=== PATIENT | male | born 1970 | race Two or more races ===

== ENCOUNTER 2020-01-06 15:30 | Outpatient (CLI) | payer BC ==
[2020-01-10] MEDS ORDERED: MIDAZOLAM 1 MG/ML, 2ML ONE (06:39)
[2020-01-10] MEDS ORDERED: FENTANYL PF 250 MCG/5ML ONE ×2 (06:40→10:32)
[2020-01-10] MEDS ORDERED: PHENYLEPHRINE 10 MG/ML ONE (06:42)
[2020-01-10] MEDS ORDERED: NEOSTIGMINE 1 MG/ML, 10ML ONE (06:45)
[2020-01-10] MEDS ORDERED: ROCURONIUM 10MG/ML,5ML ONE (06:45)
[2020-01-10] MEDS ORDERED: PROPOFOL 10 MG/ML, 20ML ONE (06:45)
[2020-01-10] MEDS ORDERED: GLYCOPYRROLATE 0.2MG/1ML, 5ML ONE (06:45)
[2020-01-10] MEDS ORDERED: CEFAZOLIN 1,000 MG ONE (06:45)
[2020-01-10] MEDS ORDERED: DEXAMETHASONE 4 MG/ML, 1ML ONE (06:45)
[2020-01-10] MEDS ORDERED: ONDANSETRON 2MG/ML, 2ML ONE (06:45)
[2020-01-10] MEDS ORDERED: SUGAMMADEX 200 MG/2 ML IVPush ONE (11:24)
== END 2020-01-06 23:59 | disposition home or self-care (01) ==
LOC: RAD 15:30
PROVIDERS: ATTEND Orthopaedic Surgery Orthopaedic Surgery of the Spine
DX: Z02.9 Encounter for administrative examinations, unspecified (principal)

== ENCOUNTER → 2020-01-06 | Outpatient (CLI) | payer BC ==
[~2020-01-06] MED LIST: ALLO300T PO; ARMO250T2 PO; ASPI-496 PO; INDO50CA15 PO; LISI-167 PO; TRAM50TA2 PO
[2020-01-06 15:01] LABS: BASOPHILS # (AUTO) 0.02 x10^3/uL (0-0.1); BASOPHILS % (AUTO) 0 % (0-1); EOSINOPHILS # (AUTO) 0.27 x10^3/uL (0-0.4); EOSINOPHILS % (AUTO) 4 % (1-7); LYMPHOCYTES # (AUTO) 1.27 x10^3/uL (1-3.4); LYMPHOCYTES % (AUTO) 18 % (22-44); MD NO; MEAN CORPUSCULAR HEMOGLOBIN 32.3 pg (27.5-34.5); MEAN CORPUSCULAR HGB CONC 34.4 g/dL (33.2-36.2); MEAN CORPUSCULAR VOLUME 94.1 fL (81-97); MEAN PLATELET VOLUME 6.9 fL (7.4-10.4); MONOCYTES % (AUTO) 9 % (2-9); NEUTROPHILS # (AUTO) 4.91 x10^3/uL (1.8-6.8); NEUTROPHILS % (AUTO) 69 % (42-75); PLATELET COUNT 186 x10^3/uL (130-400); RED CELL DISTRIBUTION WIDTH 13.4 % (9.4-14.8)
[2020-01-06 15:08] LABS: MICROSCOPIC NOT IND
[2020-01-06 15:19] LABS: ALANINE AMINOTRANSFERASE 22 U/L (12-78); ALBUMIN 4.1 g/dL (3.4-5.0); ANION GAP 6 mmol/L (5-15); CALCIUM 8.8 mg/dL (8.5-10.1); CHLORIDE 107 mmol/L (98-107); CREATININE 1.19 mg/dL (0.7-1.3)
[2020-01-06 15:21] LABS: ALKALINE PHOSPHATASE 107 U/L (45-117); BILIRUBIN,TOTAL 0.8 mg/dL (0.2-1.0); TOTAL PROTEIN 7.6 g/dL (6.4-8.2)
[2020-01-06 15:33] LABS: INTERNATIONAL NORMALIZED RATIO 0.98 (0.93-1.1); PROTHROMBIN TIME 10.4 Seconds (9.6-11.5)
== END | disposition home or self-care (01) ==
LOC: STAR 14:03
PROVIDERS: ATTEND Orthopaedic Surgery Orthopaedic Surgery of the Spine
DX: Z01.818 Encounter for other preprocedural examination (principal); M47.816 Spondylosis without myelopathy or radiculopathy, lumbar region; M43.26 Fusion of spine, lumbar region
CPT/HCPCS: 36415; 71046; 80053; 81003; 85025; 85610; 85730; 93005

== ENCOUNTER 2020-01-10 05:23 | Inpatient (IN) | payer BC ==
[~2020-01-10] VITALS: Ht 165.1 cm; Wt 100.5 kg
[2020-01-10] MEDS ORDERED: LACTATED RINGERS 1,000 ML IV SCH (05:47)
[2020-01-10 05:53] VITALS: BP 155/82
[2020-01-10] MEDS ORDERED: CHLORHEXIDINE 15 ML UDC MM ONE (06:00)
[2020-01-10] MEDS ORDERED: LIDOCAINE-MPF 1%, 2ML INFIL ONE (06:00)
[2020-01-10] MEDS ORDERED: BUPIVACAINE/PF-EPI 0.5% 1:200K ONE (06:58)
[2020-01-10] MEDS ORDERED: VANCOMYCIN 1,000 MG ONE (06:58)
[2020-01-10] MEDS ORDERED: LIDOCAINE/PF 0.5% ,50ML ONE (06:58)
[2020-01-10] MEDS ORDERED: EPINEPHRINE 1 MG/ML, 1ML ONE (06:59)
[2020-01-10] MEDS ORDERED: GABAPENTIN 300 MG CAPSULE PO ONE (07:00)
[2020-01-10] MEDS ORDERED: ACETAMINOPHEN 500 MG TABLET PO ONE (07:00)
[2020-01-10] MEDS ORDERED: LABETALOL 5MG/ML, 20ML IV PRN (07:30)
[2020-01-10] MEDS ORDERED: morphine SULFATE 10 MG/ML, 1ML IVPush PRN (07:30)
[2020-01-10] MEDS ORDERED: MEPERIDINE/PF 25MG/0.5ML IVPush PRN (07:30)
[2020-01-10] MEDS ORDERED: hydrALAzine 20 MG/ML, 1ML IV PRN (07:30)
[2020-01-10] MEDS ORDERED: ONDANSETRON 2MG/ML, 2ML IVPush PRN (07:30)
[2020-01-10] MEDS ORDERED: HYDROmorphone 1 MG/ML, 1ML INJ IVPush PRN (07:30)
[2020-01-10] MEDS ORDERED: PHENYLEPHRINE 10 MG/ML ONE (07:44)
[2020-01-10] MEDS ORDERED: CEFAZOLIN PMX 2GM/100ML ONE (07:44)
[2020-01-10] MEDS ORDERED: GLYCOPYRROLATE 0.4 MG/2 ML, 2ML ONE (07:44)
[2020-01-10] MEDS ORDERED: FENTANYL PF 250 MCG/5ML ONE ×2 (07:44)
[2020-01-10] MEDS ORDERED: NEOSTIGMINE 1 MG/ML, 10ML ONE (07:44)
[2020-01-10] MEDS ORDERED: ROCURONIUM 10 MG/ML,10ML ONE (07:44)
[2020-01-10] MEDS ORDERED: SUGAMMADEX 200 MG/2 ML IVPush ONE (07:44)
[2020-01-10] MEDS ORDERED: MIDAZOLAM 1 MG/ML, 5ML ONE (07:44)
[2020-01-10] MEDS ORDERED: PROPOFOL 10 MG/ML, 100ML IV ONE (07:44)
[2020-01-10] MEDS ORDERED: VANCOMYCIN 1,000 MG IM ONE (08:44)
[2020-01-10] MEDS ORDERED: FENTANYL PF 100 MCG/2ML ONE (11:57)
[2020-01-10] MEDS ORDERED: OXYcodone 5 MG/5 ML ORAL.SOL UDC ONE ×2 (11:57→12:20)
[2020-01-10] MEDS: OXYcodone 5 MG/5 ML ORAL.SOL UDC PO PRN ×2 (11:59→12:20)
[2020-01-10] MEDS ORDERED: METHOCARBAMOL 1000MG/10 ML IVPB PRN (12:00)
[2020-01-10] MEDS ORDERED: METHOCARBAMOL 1,000 MG in DEXTROSE 5% 100 ML IV ONE (12:00)
[2020-01-10] MEDS: FENTANYL PF 100 MCG/2ML IV PRN ×2 (12:06→12:17)
[2020-01-10] MEDS: METHOCARBAMOL 750 MG in DEXTROSE 5% 100 ML IV SCH (12:23)
[2020-01-10 13:26] VITALS: BP 113/76
[2020-01-10] MEDS ORDERED: DIPHENHYDRAMINE 50 MG/ML, 1ML IVPush PRN (14:30)
[2020-01-10] MEDS ORDERED: MAGNESIUM HYDROXIDE 8%, 30ML UDC PO PRN (14:30)
[2020-01-10] MEDS ORDERED: ONDANSETRON 2MG/ML, 2ML IV PRN (14:30)
[2020-01-10] MEDS ORDERED: BISACODYL 10 MG SUPP PR PRN (14:30)
[2020-01-10] MEDS ORDERED: DIPHENHYDRAMINE 50 MG/ML, 1ML IM PRN (14:30)
[2020-01-10] MEDS ORDERED: PROMETHAZINE 25 MG/ML, 1ML IM PRN (14:30)
[2020-01-10] MEDS ORDERED: morphine SULFATE 10 MG/ML, 1ML IV PRN (14:30)
[2020-01-10] MEDS ORDERED: HYDROcodone/APAP 5/325 TABLET PO PRN (14:30)
[2020-01-10] MEDS ORDERED: DIPHENHYDRAMINE 25 MG CAPSULE PO PRN (15:00)
[2020-01-10] MEDS ORDERED: SODIUM CHLORIDE 0.9% 1,000ML IV PRN (15:00)
[2020-01-10] MEDS: D5%-0.9% NACL+KCL 20MEQ 1,000 ML IV SCH (15:50)
[2020-01-10] MEDS: CEFAZOLIN PMX 1GM/50ML 50 ML IVPB SCH (15:51)
[2020-01-10 18:25] VITALS: BP 104/51
[2020-01-10] MEDS: SENNA/DOCUSATE TABLET PO SCH (20:40)
[2020-01-10 23:17] VITALS: BP 112/66
[2020-01-11] MEDS: CEFAZOLIN PMX 1GM/50ML 50 ML IVPB SCH (00:10)
[2020-01-11] MEDS: D5%-0.9% NACL+KCL 20MEQ 1,000 ML IV SCH ×4 (00:11→21:37)
[2020-01-11 03:26] VITALS: BP 95/63
[2020-01-11] MEDS: METHOCARBAMOL 750 MG in DEXTROSE 5% 100 ML IV SCH ×3 (03:59→20:02)
[2020-01-11 05:32] LABS: BASOPHILS % (AUTO) 0 % (0-1); EOSINOPHILS # (AUTO) 0.02 x10^3/uL (0-0.4); EOSINOPHILS % (AUTO) 0 % (1-7); LYMPHOCYTES # (AUTO) 1.58 x10^3/uL (1-3.4); LYMPHOCYTES % (AUTO) 10 % (22-44); MD NO; MEAN CORPUSCULAR HEMOGLOBIN 31.8 pg (27.5-34.5); MEAN CORPUSCULAR HGB CONC 32.8 g/dL (33.2-36.2); MEAN CORPUSCULAR VOLUME 96.9 fL (81-97); MEAN PLATELET VOLUME 7.2 fL (7.4-10.4); MONOCYTES # (AUTO) 1.34 x10^3/uL (0.2-0.8); MONOCYTES % (AUTO) 9 % (2-9); NEUTROPHILS % (AUTO) 81 % (42-75); PLATELET COUNT 210 x10^3/uL (130-400); RED BLOOD COUNT 4.22 x10^6/uL (4.38-5.82); RED CELL DISTRIBUTION WIDTH 13.9 % (9.4-14.8)
[2020-01-11 05:40] LABS: ANION GAP 5 mmol/L (5-15); CALCIUM 8.1 mg/dL (8.5-10.1); CHLORIDE 104 mmol/L (98-107)
[2020-01-11 05:42] LABS: CREATININE 1.87 mg/dL (0.7-1.3)
[2020-01-11 06:36] VITALS: BP 101/66
[2020-01-11] MEDS: ARMODAFINIL 250 MG HOMEMEDPO SCH (09:00)
[2020-01-11] MEDS: LISINOPRIL 10 MG TABLET PO SCH (09:00)
[2020-01-11] MEDS: SENNA/DOCUSATE TABLET PO SCH ×2 (09:19→20:23)
[2020-01-11] MEDS: ALLOPURINOL 300 MG TABLET PO SCH (09:19)
[2020-01-11] MEDS: HYDROcodone/APAP 10/325 MG TABLET PO PRN ×3 (11:03→23:59)
[2020-01-11 13:31] VITALS: BP 112/63
[2020-01-11 18:32] VITALS: BP 117/71
[2020-01-11 20:35] VITALS: BP 95/65
[2020-01-12 00:21] VITALS: BP 110/67
[2020-01-12 03:31] VITALS: BP 121/75
[2020-01-12] MEDS: METHOCARBAMOL 750 MG in DEXTROSE 5% 100 ML IV SCH ×2 (03:55→12:08)
[2020-01-12] MEDS: HYDROcodone/APAP 10/325 MG TABLET PO PRN ×4 (03:55→18:35)
[2020-01-12 05:19] LABS: BASOPHILS # (AUTO) 0.11 x10^3/uL (0-0.1); BASOPHILS % (AUTO) 1 % (0-1); EOSINOPHILS % (AUTO) 2 % (1-7); LYMPHOCYTES # (AUTO) 1.07 x10^3/uL (1-3.4); LYMPHOCYTES % (AUTO) 8 % (22-44); MD NO; MEAN CORPUSCULAR HEMOGLOBIN 32.6 pg (27.5-34.5); MEAN CORPUSCULAR HGB CONC 33.5 g/dL (33.2-36.2); MEAN CORPUSCULAR VOLUME 97.1 fL (81-97); MEAN PLATELET VOLUME 6.6 fL (7.4-10.4); MONOCYTES # (AUTO) 0.91 x10^3/uL (0.2-0.8); MONOCYTES % (AUTO) 7 % (2-9); NEUTROPHILS # (AUTO) 10.95 x10^3/uL (1.8-6.8); NEUTROPHILS % (AUTO) 83 % (42-75); PLATELET COUNT 172 x10^3/uL (130-400); RED BLOOD COUNT 3.95 x10^6/uL (4.38-5.82); RED CELL DISTRIBUTION WIDTH 12.9 % (9.4-14.8)
[2020-01-12 05:26] LABS: ANION GAP 2 mmol/L (5-15); CALCIUM 8.2 mg/dL (8.5-10.1); CHLORIDE 100 mmol/L (98-107); CREATININE 1.33 mg/dL (0.7-1.3)
[2020-01-12 07:05] VITALS: BP 157/84
[2020-01-12] MEDS: SENNA/DOCUSATE TABLET PO SCH ×2 (07:39→20:33)
[2020-01-12] MEDS: LISINOPRIL 10 MG TABLET PO SCH (07:39)
[2020-01-12] MEDS: ALLOPURINOL 300 MG TABLET PO SCH (07:40)
[2020-01-12] MEDS: ARMODAFINIL 250 MG HOMEMEDPO SCH (07:40)
[2020-01-12 13:00] VITALS: BP 113/73
[2020-01-12] MEDS: D5%-0.9% NACL+KCL 20MEQ 1,000 ML IV SCH (17:00)
[2020-01-12 18:22] VITALS: BP 114/64
[2020-01-12] MEDS: METHOCARBAMOL 750 MG TABLET PO SCH (20:33)
[2020-01-12] MEDS: METOCLOPRAMIDE 5 MG/ML, 2ML IVPush PRN (21:28)
[2020-01-13 00:08] VITALS: BP 152/63
[2020-01-13] MEDS: D5%-0.9% NACL+KCL 20MEQ 1,000 ML IV SCH ×2 (03:00→11:34)
[2020-01-13] MEDS: METOCLOPRAMIDE 5 MG/ML, 2ML IVPush PRN ×4 (03:34→20:42)
[2020-01-13] MEDS: METHOCARBAMOL 750 MG TABLET PO SCH ×3 (03:38→20:42)
[2020-01-13 06:38] VITALS: BP 145/74
[2020-01-13] MEDS: LISINOPRIL 10 MG TABLET PO SCH (08:06)
[2020-01-13] MEDS: ALLOPURINOL 300 MG TABLET PO SCH (08:06)
[2020-01-13] MEDS: HYDROcodone/APAP 10/325 MG TABLET PO PRN ×3 (08:06→20:43)
[2020-01-13] MEDS: ARMODAFINIL 250 MG HOMEMEDPO SCH (08:07)
[2020-01-13] MEDS: SENNA/DOCUSATE TABLET PO SCH ×2 (08:07→20:41)
[2020-01-13 12:29] VITALS: BP 106/69
[2020-01-13] MEDS: SODIUM CHLORIDE 0.9% 1,000 ML IV SCH (17:54)
[2020-01-13 18:21] VITALS: BP 125/77
[2020-01-14 00:21] VITALS: BP 123/74
[2020-01-14] MEDS: HYDROcodone/APAP 10/325 MG TABLET PO PRN ×4 (02:49→21:09)
[2020-01-14] MEDS: METOCLOPRAMIDE 5 MG/ML, 2ML IVPush PRN ×2 (02:50→21:09)
[2020-01-14 05:06] LABS: BASOPHILS # (AUTO) 0.01 x10^3/uL (0-0.1); BASOPHILS % (AUTO) 0 % (0-1); EOSINOPHILS # (AUTO) 0.07 x10^3/uL (0-0.4); EOSINOPHILS % (AUTO) 1 % (1-7); LYMPHOCYTES # (AUTO) 0.66 x10^3/uL (1-3.4); LYMPHOCYTES % (AUTO) 8 % (22-44); MD NO; MEAN CORPUSCULAR HEMOGLOBIN 32.5 pg (27.5-34.5); MEAN CORPUSCULAR HGB CONC 33.8 g/dL (33.2-36.2); MEAN CORPUSCULAR VOLUME 96.3 fL (81-97); MEAN PLATELET VOLUME 6.9 fL (7.4-10.4); MONOCYTES # (AUTO) 0.63 x10^3/uL (0.2-0.8); MONOCYTES % (AUTO) 8 % (2-9); NEUTROPHILS # (AUTO) 6.66 x10^3/uL (1.8-6.8); NEUTROPHILS % (AUTO) 83 % (42-75); PLATELET COUNT 179 x10^3/uL (130-400); RED BLOOD COUNT 3.45 x10^6/uL (4.38-5.82); RED CELL DISTRIBUTION WIDTH 13.2 % (9.4-14.8)
[2020-01-14 05:09] LABS: ANION GAP 5 mmol/L (5-15); CALCIUM 8.3 mg/dL (8.5-10.1); CHLORIDE 101 mmol/L (98-107)
[2020-01-14 06:54] VITALS: BP 156/95
[2020-01-14] MEDS: ALLOPURINOL 300 MG TABLET PO SCH (10:00)
[2020-01-14] MEDS: LISINOPRIL 10 MG TABLET PO SCH (10:00)
[2020-01-14] MEDS: METHOCARBAMOL 750 MG TABLET PO SCH ×2 (10:00→16:02)
[2020-01-14] MEDS: SENNA/DOCUSATE TABLET PO SCH ×3 (10:01→21:08)
[2020-01-14] MEDS: ARMODAFINIL 250 MG HOMEMEDPO SCH (10:02)
[2020-01-14] MEDS: SODIUM CHLORIDE 0.9% 1,000 ML IV SCH (10:02)
[2020-01-14 11:51] VITALS: BP 140/91
[2020-01-14 12:36] VITALS: BP 140/91
[2020-01-14] MEDS: CEFTRIAXONE PMX 1GM/50ML 50 ML IV SCH (15:37)
[2020-01-14] MEDS ORDERED: SODIUM CHLORIDE 0.9% 1,000 ML IV SCH (18:00)
[2020-01-14 20:09] VITALS: BP 135/85
[2020-01-15 02:02] VITALS: BP 108/63
[2020-01-15] MEDS: METHOCARBAMOL 750 MG TABLET PO SCH ×3 (02:39→17:32)
[2020-01-15] MEDS: METOCLOPRAMIDE 5 MG/ML, 2ML IVPush PRN ×2 (02:39→21:43)
[2020-01-15] MEDS: HYDROcodone/APAP 10/325 MG TABLET PO PRN ×4 (02:39→21:43)
[2020-01-15 05:24] LABS: BASOPHILS # (AUTO) 0.03 x10^3/uL (0-0.1); BASOPHILS % (AUTO) 1 % (0-1); EOSINOPHILS # (AUTO) 0.25 x10^3/uL (0-0.4); EOSINOPHILS % (AUTO) 4 % (1-7); LYMPHOCYTES # (AUTO) 0.82 x10^3/uL (1-3.4); LYMPHOCYTES % (AUTO) 12 % (22-44); MD NO; MEAN CORPUSCULAR HEMOGLOBIN 32.1 pg (27.5-34.5); MEAN CORPUSCULAR HGB CONC 33.4 g/dL (33.2-36.2); MEAN CORPUSCULAR VOLUME 96.4 fL (81-97); MEAN PLATELET VOLUME 6.6 fL (7.4-10.4); MONOCYTES # (AUTO) 0.69 x10^3/uL (0.2-0.8); MONOCYTES % (AUTO) 10 % (2-9); NEUTROPHILS # (AUTO) 5.03 x10^3/uL (1.8-6.8); NEUTROPHILS % (AUTO) 74 % (42-75); PLATELET COUNT 188 x10^3/uL (130-400); RED CELL DISTRIBUTION WIDTH 13.1 % (9.4-14.8)
[2020-01-15 05:26] LABS: ANION GAP 7 mmol/L (5-15); CALCIUM 8.2 mg/dL (8.5-10.1); CHLORIDE 101 mmol/L (98-107); CREATININE 0.92 mg/dL (0.7-1.3)
[2020-01-15] MEDS: SENNA/DOCUSATE TABLET PO SCH ×2 (08:02→21:18)
[2020-01-15] MEDS: ALLOPURINOL 300 MG TABLET PO SCH (08:02)
[2020-01-15] MEDS: LISINOPRIL 10 MG TABLET PO SCH (08:03)
[2020-01-15] MEDS: ARMODAFINIL 250 MG HOMEMEDPO SCH (08:08)
[2020-01-15 08:13] VITALS: BP 157/88
[2020-01-15] MEDS ORDERED: AZITHROMYCIN 500 MG TABLET PO ONE (09:30)
[2020-01-15 12:38] VITALS: BP 121/75
[2020-01-15] MEDS: CEFTRIAXONE PMX 1GM/50ML 50 ML IV SCH (16:04)
[2020-01-15 19:47] VITALS: BP 104/67
[2020-01-16 01:45] VITALS: BP 109/74
[2020-01-16] MEDS: METHOCARBAMOL 750 MG TABLET PO SCH ×3 (02:03→17:26)
[2020-01-16] MEDS: HYDROcodone/APAP 10/325 MG TABLET PO PRN ×5 (02:03→21:19)
[2020-01-16 05:47] LABS: BASOPHILS # (AUTO) 0.01 x10^3/uL (0-0.1); BASOPHILS % (AUTO) 0 % (0-1); EOSINOPHILS % (AUTO) 6 % (1-7); LYMPHOCYTES # (AUTO) 0.84 x10^3/uL (1-3.4); LYMPHOCYTES % (AUTO) 15 % (22-44); MD NO; MEAN CORPUSCULAR HEMOGLOBIN 32.2 pg (27.5-34.5); MEAN CORPUSCULAR HGB CONC 33.3 g/dL (33.2-36.2); MEAN CORPUSCULAR VOLUME 96.7 fL (81-97); MEAN PLATELET VOLUME 6.2 fL (7.4-10.4); MONOCYTES # (AUTO) 0.48 x10^3/uL (0.2-0.8); MONOCYTES % (AUTO) 9 % (2-9); NEUTROPHILS # (AUTO) 3.87 x10^3/uL (1.8-6.8); NEUTROPHILS % (AUTO) 70 % (42-75); PLATELET COUNT 212 x10^3/uL (130-400); RED BLOOD COUNT 3.48 x10^6/uL (4.38-5.82); RED CELL DISTRIBUTION WIDTH 12.9 % (9.4-14.8)
[2020-01-16 05:57] LABS: ALBUMIN 2.5 g/dL (3.4-5.0); ANION GAP 8 mmol/L (5-15); CALCIUM 8.6 mg/dL (8.5-10.1); CHLORIDE 100 mmol/L (98-107)
[2020-01-16 06:02] LABS: ALANINE AMINOTRANSFERASE 16 U/L (12-78); ALKALINE PHOSPHATASE 69 U/L (45-117); BILIRUBIN,TOTAL 0.5 mg/dL (0.2-1.0); CREATININE 0.81 mg/dL (0.7-1.3); TOTAL PROTEIN 6.6 g/dL (6.4-8.2)
[2020-01-16 06:40] VITALS: BP 112/69
[2020-01-16] MEDS: ARMODAFINIL 250 MG HOMEMEDPO SCH (08:47)
[2020-01-16] MEDS: AZITHROMYCIN 250 MG TABLET PO SCH (08:48)
[2020-01-16] MEDS: ALLOPURINOL 300 MG TABLET PO SCH (08:48)
[2020-01-16] MEDS: SENNA/DOCUSATE TABLET PO SCH ×2 (08:48→20:46)
[2020-01-16] MEDS: LISINOPRIL 10 MG TABLET PO SCH (08:48)
[2020-01-16] MEDS: CEFDINIR 300 MG CAPSULE PO SCH ×2 (09:58→20:46)
[2020-01-16 12:56] VITALS: BP 126/73
[2020-01-16 19:45] VITALS: BP 128/75
[2020-01-17 01:22] VITALS: BP 111/77
[2020-01-17] MEDS: METHOCARBAMOL 750 MG TABLET PO SCH ×2 (01:54→09:47)
[2020-01-17] MEDS: HYDROcodone/APAP 10/325 MG TABLET PO PRN ×4 (01:54→13:52)
[2020-01-17 06:55] VITALS: BP 144/90
[2020-01-17] MEDS: ARMODAFINIL 250 MG HOMEMEDPO SCH (08:35)
[2020-01-17] MEDS: SENNA/DOCUSATE TABLET PO SCH (08:36)
[2020-01-17] MEDS: AZITHROMYCIN 250 MG TABLET PO SCH (08:36)
[2020-01-17] MEDS: CEFDINIR 300 MG CAPSULE PO SCH (08:37)
[2020-01-17] MEDS: LISINOPRIL 10 MG TABLET PO SCH (08:37)
[2020-01-17] MEDS: ALLOPURINOL 300 MG TABLET PO SCH (09:00)
[2020-01-17] MEDS ORDERED: CHLO25TA4 PO (12:17)
[2020-01-17] MEDS ORDERED: METH750T87 PO (12:17)
[2020-01-17] MEDS ORDERED: CEFD300C37 PO (12:18)
[2020-01-17] MEDS ORDERED: AZIT250T PO (12:19)
[2020-01-17] MEDS ORDERED: HYDR-3246 PO (12:21)
[2020-01-17 13:54] VITALS: BP 114/68
== END 2020-01-17 14:17 | disposition home or self-care (01) | DRG 459 ==
LOC: EDSEX → ORIP 05:23 → 4NE 13:07 → DCLOUNGE 01-17 14:02
PROVIDERS: ADMIT Orthopaedic Surgery Orthopaedic Surgery of the Spine; ATTEND Orthopaedic Surgery Orthopaedic Surgery of the Spine
PROC: 01NB0ZZ Release Lumbar Nerve, Open Approach (ICD-10-PCS; 2020-01-10)
PROC: 0SG00K1 Fusion of Lumbar Vertebral Joint with Nonautologous Tissue Substitute, Posterior Approach, Posterior Column, Open Approach (ICD-10-PCS; principal; 2020-01-10 07:30)
DX: M48.061 Spinal stenosis, lumbar region without neurogenic claudication (principal); J18.1 Lobar pneumonia, unspecified organism; E87.1 Hypo-osmolality and hyponatremia; N17.9 Acute kidney failure, unspecified; M43.16 Spondylolisthesis, lumbar region; E78.5 Hyperlipidemia, unspecified; E86.0 Dehydration; R06.6 Hiccough; I10 Essential (primary) hypertension; D72.829 Elevated white blood cell count, unspecified; M54.16 Radiculopathy, lumbar region; Z87.891 Personal history of nicotine dependence; Z79.4 Long term (current) use of insulin
CPT/HCPCS: 36415; 71046; 72100; 72110; 80048; 80053; 85025; C1713; G0378; J0171; J0690; J0696; J1100; J2001; J2250; J2270; J2405; J2550; J2704; J2710; J3010; J3370; C1762; J2370; J2765; J2800; J3480; J7030; J7120